=== PATIENT | female | born 1975 | race Caucasian/White ===

== ENCOUNTER → 2021-12-01 15:41 | Outpatient (CLI) | payer OTHER, SELFPAY ==
--- NOTE | ~2021-12-01 | MM_ITS ---
EXAMINATION: MM screening nicolle BI w damion HISTORY: Screening mammogram TECHNIQUE: Craniocaudal and mediolateral oblique 3-D tomosynthesis images were obtained and synthetic 2-D images were generated. CAD analysis was submitted and interpreted. COMPARISON: No prior mammogram is available for comparison at this institution. BREAST PARENCHYMAL COMPOSITION: There are scattered areas of fibroglandular density. FINDINGS: There is no evidence of suspicious mass, calcification, or architectural distortion to sugg est malignancy in either breast. There has been no suspicious interval change. IMPRESSION: 1. No mammographic evidence of malignancy. 2. Recommend routine screening mammography in one year. BI-RADS Category 1: Negative Reviewed, dictated and finalized at location A.
== END ==
PROVIDERS: PCP Family Medicine; Visit Provider Obstetrics & Gynecology
DX: Z12.31 Encounter for screening mammogram for malignant neoplasm of breast (principal)
CPT/HCPCS: 77063; 77067

== ENCOUNTER 2022-10-24 17:01 | Outpatient (CLI) | payer BC, SELFPAY ==
[2022-10-29 15:24] LABS: FSH 45.8 mIU/mL (***)
== END 2022-10-24 17:02 | disposition home or self-care (01) ==
LOC: ANHLAB 17:04
PROVIDERS: PCP Family Medicine; Visit Provider Obstetrics & Gynecology
DX: N95.1 Menopausal and female climacteric states (principal)
CPT/HCPCS: 36415; 83001

== ENCOUNTER 2023-12-03 14:41 | Outpatient (CLI) | payer OTHER, SELFPAY ==
--- NOTE | ~2023-12-03 | MM_ITS ---
EXAMINATION: MM screening nicolle BI w damion HISTORY: Screening mammogram TECHNIQUE: Craniocaudal and mediolateral oblique 3-D tomosynthesis images were obtained and synthetic 2-D images were generated. CAD analysis was submitted and interpreted. COMPARISON: 12/01/2021 BREAST PARENCHYMAL COMPOSITION:Not Dense. There are scattered areas of fibroglandular density. FINDINGS: No suspicious mass, calcification, or architectural distortion are identified in either zulma ast to suggest malignancy. There has been no suspicious interval change. IMPRESSION: No mammographic evidence of malignancy. Recommend routine screening mammography in one year. BI-RADS Category 1: Negative Reviewed, dictated and finalized at location .
== END 2023-12-03 14:42 | disposition home or self-care (01) ==
LOC: MICIMG 14:42
PROVIDERS: Visit Provider Obstetrics & Gynecology
DX: Z12.31 Encounter for screening mammogram for malignant neoplasm of breast (principal)
CPT/HCPCS: 77063; 77067

== ENCOUNTER 2024-06-13 14:20 | Emergency (ER) | payer BC, SELFPAY ==
--- OUTSIDE RECORDS SUMMARY | 2024-06-13 14:23 | XMS_ITS | Clinical Summary ---
Author Organization [facility] Address [address] [place] [address] Care Team Providers Care Baller Tender Name Role Phone Mike Guzman MD Primary Care Provider [phone] Source Comments [facility],non-[facility]iliates and Associated Physician Practices is amultiple site organization consisting of ambulatory clinics and hospital sitesin [place], [place], [place] and [place]. This disclosure is being madepursuant to the Care Everywhere program and may not contain all information available regarding this patient. Last updated 17.[facility] Allergies Active Allergy Reactions Criticality Noted Date Comments Metronidazole Headache 10/15/2023 Penicillins Rash Medium 10/15/2023 Sumatriptan Headache 10/15/2023 Medications * Be aware that medications may not be up to date on this document. Alwaysverify current medications with the patient. Medication Sig Dispensed Refills Start Date End Date Status amLODIPine (Norvasc) 5 MG tablet Take 1 (one) tablet by mouth 05/17/2023 Active losartan (Cozaar) 25 MG tablet Take 1 (one) tablet by mouth once daily 09/10/2023 Active diclofenac sodium EC (Voltaren) 50 MG tablet Take 1 (one) tablet by mouth 2 times daily 11/24/2022 Active levothyroxine (Synthroid) 88 MCG tablet Take 1 (one) tablet by mouth every morning 12/17/2022 Active gabapentin (Neurontin) 100 MG capsule Take 1 (one) capsule by mouth at bedtime 02/19/2023 Active LORazepam (Ativan) 0.5 MG tablet Take 1 (one) tablet by mouth 2 times daily as needed 09/18/2023 Active Veozah 45 MG tablet Take 1 (one) tablet by mouth once daily Active escitalopram (Lexapro) 20 MG tablet Take 1 (one) tablet by mouth once daily 02/28/2023 Active Social History Tobacco Use Types Packs/Day Years Used Date Smoking Tobacco: Never Smokeless Tobacco: Never Tobacco Cessation:Counseling Given: Not Answered Alcohol Use Standard Drinks/Week Comments Never 0 (1 standard drink = 0.6 oz pur e alcohol) Sex and Gender Information Value Date Recorded Sex Assigned at Not on file Gender Identity Not on file Sexual Orientation Not on file Last Filed Vital Signs Vital Sign Reading Time Taken Comments Blood Pressure 129/89 12/03/2023 9:40 AM CDT Pulse 85 12/03/2023 9:35 AM CDT Temperature 36.6 C (97.9 F) 12/03/2023 9:35 AM CDT Respiratory Rate 17 12/03/2023 9:35 AM CDT Oxygen Saturation 96% 12/03/2023 9:35 AM CDT Inhaled Oxygen Concentration - - Weight 111.9 kg (246 lb 9.6 oz) 12/03/2023 9:35 AM CDT Height 170.2 cm (5' 7 ) 12/03/2023 9:35 AM CDT Body Mass Index 38.62 12/03/2023 9:35 AM CDT Plan of Treatment Health Maintenance Due Date Last Done Comments COLOGUARD (AGES 45-75) - COLON CA SCREENING 1973 COLON MONITORING 1973 COLONOSCOPY - COLON CA SCREENING 1973 CT COLONOGRAPHY - COLON CA SCREENING 1973 Colorectal Cancer Screening 1973 FIT - COLON CA SCREENING 1973 FLEX SIG - COLON CA SCREENING 1973 PAP SMEAR 1973 HIV SCREENING 1988 HEPATITIS C SCREENING 03/06/1991 DTAP/TDAP/TD VACCINES (1 - Tdap) 1992 HEPATITIS B VACCINE (1 of 3 - 19+ 3-dose series) 1992 PNEUMOCOCCAL VACCINE 50+ (1 of 1 - PCV) 2023 ZOSTER VACCINE (1 of 2) 2023 SCREENING FOR DIABETES 10/15/2023 COVID-19 VACCINE (3 - 2023- season) 2023 05/12/2020, 04/14/2020 INFLUENZA VACCINE (#1) 2023 DEPRESSION SCREENING 03/18/2024 MAMMOGRAM 12/02/2025 12/03/2023, 11/16, 07/18/2017, Additional history exists LIPID TESTING 11/06/2028 11/07/2023 HIB VACCINE Aged Out No longer eligi ble based on patient's age to complete this topic HPV VACCINE Aged Out No longer eligi ble based on patient's age to complete this topic MENINGOCOCCAL (Group B) VACCINE SHARED DECISION-MAKING Aged Out No longer eligible based on patient's age to complete this topic MENINGOCOCCAL GROUPS A/C/Y/W VACCINE Aged Out No longer eligible based on patient's age to complete this topic PNEUMOCOCCAL VACCINE Aged Out No long er eligible based on patient's age to complete this topic Procedures Procedure Name Priority Date/Time Associated Diagnosis Comments MAMMOGRAM Routine 12/03/2023 10:51 AM CDT from Last 3 Months or Most Recently Relevant to Health Maintenance Results * MAMMOGRAM (12/03/2023 10:51 AM CDT) Anatomical Region Laterality Modality Other Historical Provider MD SCANNING ONLY from Last 3 Months or Most Recently Relevant to Health Maintenance Care Teams Baller Tender Relationship Specialty [place] [id number] [place] [address] PCP - General Family Medicine 08/13/23
[2024-06-13 14:36] VITALS: BP 115/73; PULSE 85; RESP 18; TEMP 36.6; O2SAT 98
--- NOTE | 2024-06-13 15:07 | ED_ITS ---
HPI - General Adult General Chief complaint: Urogenital-Female Stated complaint: bladder issues/back pain Time Seen by Provider: 06/13/24 15:07 Source: patient Mode of arrival: ambulatory Limitations: no limitations History of Present Illness HPI narrative: 49-year-old female patient presents to the [facility] with complaints of urinary symptoms for the past 3-4 days. Patient states she has had some low back pain, urgency, frequency, pain with urination. Patient states she has had some body aches and chills but denies fevers that she is aware of. Patient states she did take some azo today. Related Data Home Medications ?Medication ?Instructions ?Recorded ?Confirmed ?Last Taken ?Type escitalopram oxalate 20 mg tablet 20 mg PO DAILY 03/23/19 12/06/22 Unknown History (Lexapro) levothyroxine 88 mcg tablet 88 mcg PO DAILY 03/23/19 12/06/22 Unknown History estradiol 1 mg tablet 1 mg PO DAILY 04/02/24 Unknown History progesterone micronized 100 mg 100 mg PO QAM 04/02/24 Unknown History capsule semaglutide 0.25 mg or 0.5 mg (2 0.25 mg subcut WEEKLY 04/02/24 Unknown History mg/3 mL) subcutaneous pen injector Allergies Allergy/AdvReac Type Severity Reaction Status Date / Time metronidazole Allergy Unknown nausea, Verified 06/13/24 14:43 headache Penicillins Allergy Unknown Verified 06/13/24 14:43 oseltamivir (From Tamiflu) AdvReac Mild headaches Verified 06/13/24 14:43 Review of Systems Review of Systems: CONSTITUTIONAL: Denies fever, chills, or sweats. EYES: Denies visual changes, redness, or discharge. ENT: Denies rhinorrhea, congestion, sore throat, or otalgia. CARDIOVASCULAR: Denies chest pain, palpitations, or edema. RESPIRATORY: Denies cough or dyspnea. GASTROINTESTINAL: Denies abdominal pain, nausea, vomiting, or diarrhea. GENITOURINARY: positive dysuria , denies hematuria. SKIN: Denies rash or itching. MUSCULOSKELETAL: Denies back pain, joint pain, or myalgia. NEUROLOGIC: Denies headache, numbness, or weakness. PSYCHIATRIC: Denies anxiety or depression. [facility] Past Medical History Medical History Depression Anxiety Arthritis Surgical History Surgical History S/P endometrial ablation Cholecystectomy planned Family History Family History Grandparent Carcinoma of colon Diabetes mellitus Father Family history of coronary artery disease Social History Social History Smoking status: Never smoker Second hand tobacco smoke exposure: No Alcohol intake: never Substance use: never Substance use type: does not use Lack of Transportation: No Lack of Food: Never True Current Housing: I Have Housing Concerned About Future Housing: No Difficulty Paying Gas/Electric Bills: No Difficulty Paying for Meds: No Currently Unemployed: No Living arrangements: with family Gender identity (if verbalized by the patient): Female Spiritual care concerns: No Agree to blood products: Yes Comments At the time of my signature I agree with nursing past medical history, surgical, social, and family history. There is no relevant family history pertinent to the presenting complaint. Exam Narrative: GENERAL: Well-appearing, well-nourished, and in no acute distress. HEAD: Normocephalic, atraumatic. EYES: PERRLA and EOMI. ENT: Nares clear, no rhinorrhea or epistaxis. Mucous membranes moist. NECK: Supple. No lymphadenopathy CHEST: Clear to auscultation. No respiratory distress. HEART: Regular rate and rhythm. No murmur heard. Normal peripheral pulses. ABDOMEN: Soft, nontender, nondistended, normal active bowel sounds. right-sided CVA tenderness on percussion EXTREMITIES: Normal range of motion. No edema. SKIN: Warm, dry, no rash. NEURO: No focal deficits. Alert and oriented x3. Course Course Level of Care: Express Care Visit Vital Signs Vital signs: Vital Signs Temperature 36.6 C 06/13/24 14:36 Pulse Rate 85 06/13/24 14:36 Respiratory Rate 18 06/13/24 14:36 Blood Pressure 115/73 06/13/24 14:36 Pulse Oximetry 98 06/13/24 14:36 Oxygen Delivery Room Air 06/13/24 14:36 Temperature 36.6 C 06/13/24 14:36 Pulse Rate 85 06/13/24 14:36 Respiratory Rate 18 06/13/24 14:36 Blood Pressure 115/73 06/13/24 14:36 Pulse Oximetry 98 06/13/24 14:36 Oxygen Delivery Room Air 06/13/24 14:36 vital signs reviewed. Medical Decision Making MDM Narrative Medical decision making narrative: discussed with patient that we are unable to dip her urine due to her taking a Zio. We will send it off to the lab for culture. Discussed with patient we will go ahead and start her on antibiotics today and highly recommend that she increase her water intake to help flush out her kidneys and bladder. I will also provide her some fluconazole since she is very sensitive to antibiotics and they do cause yeast infections often. Patient verbalized understanding denies any other questions or concerns at this time Differential Diagnosis Differential Diagnosis: Differential diagnosis: Uncomplicated lower UTI, uncomplicated UTI, pyelonephritis Vital Signs Vital Signs: Vital Signs Temperature 36.6 C 06/13/24 14:36 Pulse Rate 85 06/13/24 14:36 Respiratory Rate 18 06/13/24 14:36 Blood Pressure 115/73 06/13/24 14:36 Pulse Oximetry 98 06/13/24 14:36 Oxygen Delivery Room Air 06/13/24 14:36 Temperature 36.6 C 06/13/24 14:36 Pulse Rate 85 06/13/24 14:36 Respiratory Rate 18 06/13/24 14:36 Blood Pressure 115/73 06/13/24 14:36 Pulse Oximetry 98 06/13/24 14:36 Oxygen Delivery Room Air 06/13/24 14:36 Critical Care Time Critical Care Time Critical Care Time: No Discharge Plan Discharge Clinical Impression: Urinary tract infection Patient Disposition: Home, Self-Care Condition: Stable Instructions: Antibiotic Form, Urinary Tract Infection in Women (ED) Additional Instructions: We will send a urine culture off to the lab; if the culture identifies an organism that the prescribed antibiotic will not treat, you will receive a phone call from an urgent care staff member and an appropriate antibiotic will be prescribed. -Your symptoms should begin to improve within a day of starting antibiotics. But you should finish all the antibiotic pills you get. Otherwise your infection might come back. -Also recommend: drink more fluid. It might help flush out germs, and it does no harm -Tylenol/ibuprofen prn for pain or fever -Follow-up with your primary care provider for urine recheck or seek ER visit if condition worsens with high fever, nausea, vomiting and severe back pain. Patient Language: Serbian Prescriptions: New sulfamethoxazole-trimethoprim [Bactrim DS] 800-160 mg tablet 1 tablet PO Q12H 5 Days Qty: 10 0RF fluconazole 150 mg tablet 150 mg PO ONCE Qty: 1 0RF Rx Instructions: as a single dose No Action levothyroxine 88 mcg tablet 88 mcg PO DAILY escitalopram oxalate [Lexapro] 20 mg tablet 20 mg PO DAILY lorazepam [Ativan] 0.5 mg tablet 0.5 mg PO DAILY PRN (Reason: anxiety) Qty: 30 0RF progesterone micronized 100 mg capsule 100 mg PO QAM Rx Instructions: off 7 days; repeat cycle estradiol 1 mg tablet 1 mg PO DAILY Rx Instructions: off 1 week; repeat cycle semaglutide 0.25 mg or 0.5 mg (2 mg/3 mL) pen injector 0.25 mg subcut WEEKLY Rx Instructions: for 4 weeks Follow-up/Referrals: Thomas,Mike Alvarez MD [Primary Care Provider] - Time of Disposition: 15:18
== END 2024-06-13 15:25 | disposition home or self-care (01) ==
PROVIDERS: Emergency Provider Nurse Practitioner Family; PCP Family Medicine
DX: N39.0 Urinary tract infection, site not specified (principal); M19.90 Unspecified osteoarthritis, unspecified site; F41.9 Anxiety disorder, unspecified; F32.A Depression, unspecified
CPT/HCPCS: 87086; 99213; G0463